=== PATIENT | female | born 1960 ===

== ENCOUNTER → 2018-03-20 | Outpatient (CLI) | payer OTHER | END | disposition home or self-care (01) | LOC: PLD 11:14 → LAB SHORT 11:14 | DX: D48.5 Neoplasm of uncertain behavior of skin (principal) | CPT/HCPCS: 88305 ==

== ENCOUNTER 2018-11-17 11:05 | Day surgery (SDC) | payer OTHER ==
[~2018-11-17] VITALS: Ht 160 cm; Wt 67.4 kg
[~2018-11-17 11:05] MED LIST: ASACOL HD800 MG; FISH OIL 1,0001 EAC1; GLUTATHIONE; MAGCHL64ER; UBID10
--- NOTE | 2018-11-17 13:25 | NUR ---
11/17/18 1324 Kelsi Mcarthur PATIENT AND FAMILY NOTIFIED THAT THERE IS A DELAY DUE TO PRIOR CASE RUNNING LONGER. PATIENT AND FAMILY VERBALIZE UNDERSTANDING AND PATIENT STATES SHE HAS NO NEEDS AT THIS TIME
== END 2018-11-17 14:17 | disposition home or self-care (01) ==
LOC: ORSCSDS 11:05
PROVIDERS: Internal Medicine Gastroenterology
PROC: 0DBE8ZX Excision of Large Intestine, Via Natural or Artificial Opening Endoscopic, Diagnostic (ICD-10-PCS; principal; 2018-11-17 12:45)
DX: K51.90 Ulcerative colitis, unspecified, without complications (principal)
CPT/HCPCS: 88305; J2704; J7120

== ENCOUNTER → 2019-06-06 | Outpatient (CLI) | payer OTHER ==
[2019-06-08 15:07] LABS: HPV 16 Negative (Negative); HPV 18 Negative (Negative); HPV OTHER HR TYPES Negative (Negative)
== END | disposition home or self-care (01) ==
LOC: LAB 17:51 → LAB SHORT 17:51
PROVIDERS: Obstetrics & Gynecology Gynecology
DX: Z12.72 Encounter for screening for malignant neoplasm of vagina (principal)
CPT/HCPCS: 87624; G0123

== ENCOUNTER 2022-05-04 07:43 | Day surgery (SDC) | payer BC | END 2022-05-04 10:45 | disposition home or self-care (01) | LOC: ORSCSDS 07:43 | PROVIDERS: Student in an Organized Health Care Education/Training Program | PROC: 0DBE8ZX Excision of Large Intestine, Via Natural or Artificial Opening Endoscopic, Diagnostic (ICD-10-PCS; principal; 2022-05-04 09:00) | PROC: 0DBL8ZX Excision of Transverse Colon, Via Natural or Artificial Opening Endoscopic, Diagnostic (ICD-10-PCS; principal; 2022-05-04 09:00) | PROC: 0DBN8ZX Excision of Sigmoid Colon, Via Natural or Artificial Opening Endoscopic, Diagnostic (ICD-10-PCS; principal; 2022-05-04 09:00) | PROC: 0DBH8ZX Excision of Cecum, Via Natural or Artificial Opening Endoscopic, Diagnostic (ICD-10-PCS; principal; 2022-05-04 09:00) | PROC: 0DBK8ZX Excision of Ascending Colon, Via Natural or Artificial Opening Endoscopic, Diagnostic (ICD-10-PCS; principal; 2022-05-04 09:00) | DX: K51.00 Ulcerative (chronic) pancolitis without complications (principal); K63.5 Polyp of colon; Z86.010 Personal history of colon polyps; Z79.899 Other long term (current) drug therapy | CPT/HCPCS: 88305; J2704; J7120 ==